=== PATIENT | male | born 1980 | race Caucasian/White ===

== ENCOUNTER 2020-02-07 12:09 | Emergency (ER) | payer OTHER ==
[~2020-02-07] VITALS: Ht 172.7 cm; Wt 82.0 kg
[2020-02-07 12:20] VITALS: BP 149/86
[2020-02-07] MEDS ORDERED: PLEASE ENTER HEIGHT AND WEIGHT MC SCH (12:30)
[2020-02-07] MEDS ORDERED: PLEASE ENTER ALLERGIES MC SCH (12:30)
[2020-02-07] MEDS ORDERED: ACETAMINOPHEN 325 MG TABLET PO ONE (12:30)
[2020-02-07] MEDS ORDERED: NEOSPORIN OINT. PKT 1 PACKET ONE (12:40)
[2020-02-07] MEDS ORDERED: ACETAMINOPHEN 325 MG TABLET ONE (13:22)
== END 2020-02-07 14:22 | disposition home or self-care (01) ==
LOC: ED 12:32
DX: S16.1XXA Strain of muscle, fascia and tendon at neck level, initial encounter (principal); S39.012A Strain of muscle, fascia and tendon of lower back, initial encounter; S29.012A Strain of muscle and tendon of back wall of thorax, initial encounter; S00.81XA Abrasion of other part of head, initial encounter; G89.11 Acute pain due to trauma; R55 Syncope and collapse; Y08.89XA Assault by other specified means, initial encounter; Y93.89 Activity, other specified; Y92.148 Other place in prison as the place of occurrence of the external cause; Y99.8 Other external cause status
CPT/HCPCS: 70450; 72072; 72110; 72125; 93880; 99285